=== PATIENT | female | born 1960 | race American Indian/Alaskan Native ===

== ENCOUNTER 2017-02-08 08:43 | Inpatient (IN) | payer OTHER ==
[2017-02-08] MEDS ORDERED: ZOFRAN ODT ONE (08:52)
[2017-02-08] MEDS ORDERED: ZOFRAN ODT PO ONE (08:57)
[2017-02-08 09:46] LABS: Basophils % (Auto) 0.4 % (0.0-1.8); Eosinophils % (Auto) 0.6 % (0.0-4.3); Hematocrit 39.9 % (30.3-42.9); Hemoglobin 13.3 gm/dl (10.1-14.3); Mean Corpuscular HGB Conc 33 % (30-34); Mean Corpuscular Hemoglobin 30 pg (28-32); Mean Corpuscular Volume 89 fl (79-97); Platelet Count 233 K/mm3 (140-440); Red Cell Distribution Width 13.3 % (13.2-15.2); White Blood Count 18.7 K/mm3 (4.5-11.0)
[2017-02-08 09:55] LABS: Bilirubin,Urine NEG (Negative); Blood,Urine NEG (Negative); Ketones,Urine NEG (Negative); Leukocyte Esterase,Urine NEG (Negative); Nitrite,Urine NEG (Negative); Protein,Urine <15 mg/dL mg/dL (Negative); Urobilinogen,Urine < 2.0 mg/dL (<2.0)
[2017-02-08 09:59] LABS: Alanine Aminotransferase 12 units/L (7-56); Albumin 4.1 g/dL (3.9-5); Albumin/Globulin Ratio 1.4 %; Alkaline Phosphatase 65 units/L (35-129); Anion Gap 19 mmol/L; BUN/Creatinine Ratio 23.33; Bilirubin,Total 0.2 mg/dL (0.1-1.2); Blood Urea Nitrogen 14 mg/dL (7-17); Calcium 8.9 mg/dL (8.4-10.2); Carbon Dioxide 23 mmol/L (22-30); Chloride 101.9 mmol/L (98-107); Glucose 214 mg/dL (65-100); Lipase 34 units/L (13-60); Sodium 141 mmol/L (137-145); Total Protein 7.1 g/dL (6.3-8.2)
[2017-02-08 10:07] LABS: Potassium 2.9 mmol/L (3.6-5.0)
[2017-02-08] MEDS ORDERED: K-DUR PO ONE ×2 (10:09→17:00)
--- NOTE | 2017-02-08 10:42 | Emergency Department Report ---
ED General Adult HPI - General Chief complaint: Dizziness Stated complaint: VERTIGO/EMESIS/DIZZINESS Time Seen by Provider: 02/08/17 10:40 Source: patient, family, EMS Mode of arrival: Wheelchair Limitations: No Limitations - History of Present Illness Initial comments: She states that she was at work yesterday when she began to become nauseated. She was concerned because her blood pressure was 160 systolic at work which is high for her. She had some vague dizziness. She developed a spinning sensation ("vertigo"). Today she started to experience epigastric discomfort and vomiting. She had no signs of GI bleeding. She denied any diarrhea. She denied any chest pain pressure or tightness. She also denied headache fever or chills. She had no other focal symptoms. She denied weakness paresthesias or numbness. She had no change in her tuttle, diplopia no difficulty with gait or her coordination. She states that she has not had similar such symptoms. Patient denies a history of coronary artery disease. She states her only surgery was uterine fibroid embolization. She has no known history of gallbladder disease or other GI problems. -: Gradual, hour(s) Location: abdomen Radiation: non-radiation Quality: aching Consistency: intermittent, now resolved Improves with: none Worsens with: none Associated Symptoms: denies other symptoms, nausea/vomiting Treatments Prior to Arrival: none - Related Data Home Medications Medication Instructions Recorded Confirmed Last Taken Lisinopril/Hydrochlorothiazide 1 tab PO DAILY 02/08/17 02/08/17 Unknown [Zestoretic 10-12.5 mg] Allergies Allergy/AdvReac Type Severity Reaction Status Date / Time Penicillins Allergy Hives Verified 02/08/17 08:49 ED Review of Systems ROS: Stated complaint: VERTIGO/EMESIS/DIZZINESS Other details as noted in HPI Constitutional: denies: chills, fever Eyes: denies: eye pain, eye discharge, vision change ENT: denies: ear pain, throat pain Respiratory: denies: cough, shortness of breath, wheezing Cardiovascular: denies: chest pain, palpitations Endocrine: no symptoms reported Gastrointestinal: abdominal pain, nausea, vomiting. denies: diarrhea Genitourinary: denies: urgency, dysuria, discharge Musculoskeletal: denies: back pain, joint swelling, arthralgia Skin: denies: rash, lesions Neurological: vertigo. denies: headache, weakness, paresthesias Psychiatric: denies: anxiety, depression Hematological/Lymphatic: denies: easy bleeding, easy bruising ED Past Medical Hx - Past Medical History Hx Hypertension: Yes (takes lisinopril) - Surgical History Past Surgical History?: Yes Additional Surgical History: fibroid removal - Social History Smoking Status: Never Smoker Substance Use Type: None - Medications Home Medications: Home Medications Medication Instructions Recorded Confirmed Last Taken Type Lisinopril/Hydrochlorothiazide 1 tab PO DAILY 02/08/17 02/08/17 Unknown History [Zestoretic 10-12.5 mg] ED Physical Exam - General Limitations: No Limitations General appearance: alert, in no apparent distress - Head Head exam: Present: atraumatic, normocephalic - Eye Eye exam: Present: normal appearance, nystagmus (more accentuated right horizontal) - ENT ENT exam: Present: normal exam, mucous membranes moist - Neck Neck exam: Present: normal inspection. Absent: tenderness, meningismus - Respiratory Respiratory exam: Present: normal lung sounds bilaterally. Absent: respiratory distress - Cardiovascular Cardiovascular Exam: Present: regular rate, normal rhythm. Absent: systolic murmur, diastolic murmur, rubs, gallop - GI/Abdominal GI/Abdominal exam: Present: soft, normal bowel sounds. Absent: distended, tenderness, guarding, rebound, rigid, organomegaly, mass - Extremities Exam Extremities exam: Present: normal inspection - Back Exam Back exam: Present: normal inspection. Absent: CVA tenderness (R), CVA tenderness (L) - Neurological Exam Neurological exam: Present: alert, oriented X3, CN II-XII intact, other ( cerebellar testing was normal. Visual feels equal by confrontation.). Absent: motor sensory deficit - Psychiatric Psychiatric exam: Present: normal affect, normal mood - Skin Skin exam: Present: warm, dry, intact, normal color. Absent: rash ED Course Vital Signs 02/08/17 02/08/17 02/08/17 08:49 09:41 09:45 Temperature 97.3 F L Pulse Rate 65 72 Respiratory 18 19 16 Rate Blood Pressure 134/67 Blood Pressure 163/81 [Right] O2 Sat by Pulse 100 99 Oximetry 02/08/17 02/08/17 02/08/17 10:00 11:00 11:45 Temperature Pulse Rate 64 64 77 Respiratory 12 15 16 Rate Blood Pressure 163/81 145/68 Blood Pressure 133/70 [Right] O2 Sat by Pulse 99 100 100 Oximetry 02/08/17 02/08/17 02/08/17 12:04 12:32 13:00 Temperature Pulse Rate 66 Respiratory 16 11 L Rate Blood Pressure 145/68 133/70 Blood Pressure [Right] O2 Sat by Pulse 100 100 100 Oximetry 02/08/17 14:00 Temperature Pulse Rate 76 Respiratory Rate Blood Pressure 131/70 Blood Pressure [Right] O2 Sat by Pulse 100 Oximetry - Reevaluation(s) Reevaluation #1: She is Discussed with Dr. Gonzalez; the patient was admitted to the hospitalist service. A CT of her head was negative for any obvious pathology. A CT of the abdomen with IV contrast showed no evidence of any inflammatory process. The patient does have uterine fibroid. Her 12-lead EKG showed repolarization abnormalities which might be consistent with her hypokalemia. She had that repleted in the emergency department she was given Protonix and antiemetics. She didn't have any persistent vomiting in the emergency department. As far as I know her symptoms have improved. She has been admitted for further care and evaluation. 02/08/17 15:07 ED Medical Decision Making - Lab Data Result diagrams: 02/08/17 09:22 02/08/17 09:22 Laboratory Results - last 24 hr 02/08/17 02/08/17 02/08/17 09:22 09:22 Unknown WBC 18.7 H RBC 4.50 Hgb 13.3 Hct 39.9 MCV 89 MCH 30 MCHC 33 RDW 13.3 Plt Count 233 Lymph % (Auto) 12.2 L [place] % (Auto) 3.0 Eos % (Auto) 0.6 Baso % (Auto) 0.4 Lymph # 2.3 Mora # 0.6 Eos # 0.1 Baso # 0.1 Seg Neutrophils % 83.8 H Seg Neutrophils # 15.6 H Sodium 141 Potassium 2.9 L* Chloride 101.9 Carbon Dioxide 23 Anion Gap 19 BUN 14 Creatinine 0.6 L Estimated GFR > 60 BUN/Creatinine Ratio 23.33 Glucose 214 H Calcium 8.9 Total Bilirubin 0.2 AST 18 ALT 12 Alkaline Phosphatase 65 Total Protein 7.1 Albumin 4.1 Albumin/Globulin Ratio 1.4 Lipase 34 Urine Color Straw Urine Turbidity Clear Urine pH 6.0 Ur Specific [place] 1.015 Urine Protein <15 mg/dl Urine Glucose (UA) >=500 Urine Ketones Neg Urine Blood Neg Urine Nitrite Neg Urine Bilirubin Neg Urine Urobilinogen < 2.0 Ur Leukocyte Esterase Neg Urine WBC (Auto) 1.0 Urine RBC (Auto) 1.0 Laboratory Results - last 24 hr 02/08/17 02/08/17 02/08/17 09:22 09:22 09:22 WBC 18.7 H RBC 4.50 Hgb 13.3 Hct 39.9 MCV 89 MCH 30 MCHC 33 RDW 13.3 Plt Count 233 Lymph % (Auto) 12.2 L [place] % (Auto) 3.0 Eos % (Auto) 0.6 Baso % (Auto) 0.4 Lymph # 2.3 Mora # 0.6 Eos # 0.1 Baso # 0.1 Seg Neutrophils % 83.8 H Seg Neutrophils # 15.6 H Sodium 141 Potassium 2.9 L* Chloride 101.9 Carbon Dioxide 23 Anion Gap 19 BUN 14 Creatinine 0.6 L Estimated GFR > 60 BUN/Creatinine Ratio 23.33 Glucose 214 H Calcium 8.9 Magnesium 1.7 Total Bilirubin 0.2 AST 18 ALT 12 Alkaline Phosphatase 65 Total Creatine Kinase 135 CK-MB (CK-2) 2.6 CK-MB (CK-2) Rel Index 1.9 Troponin T < 0.010 Total Protein 7.1 Albumin 4.1 Albumin/Globulin Ratio 1.4 Lipase 34 Urine Color Urine Turbidity Urine pH Ur Specific [place] Urine Protein Urine Glucose (UA) Urine Ketones Urine Blood Urine Nitrite Urine Bilirubin Urine Urobilinogen Ur Leukocyte Esterase Urine WBC (Auto) Urine RBC (Auto) 02/08/17 Unknown WBC RBC Hgb Hct MCV MCH MCHC RDW Plt Count Lymph % (Auto) [place] % (Auto) Eos % (Auto) Baso % (Auto) Lymph # Mora # Eos # Baso # Seg Neutrophils % Seg Neutrophils # Sodium Potassium Chloride Carbon Dioxide Anion Gap BUN Creatinine Estimated GFR BUN/Creatinine Ratio Glucose Calcium Magnesium Total Bilirubin AST ALT Alkaline Phosphatase Total Creatine Kinase CK-MB (CK-2) CK-MB (CK-2) Rel Index Troponin T Total Protein Albumin Albumin/Globulin Ratio Lipase Urine Color Straw Urine Turbidity Clear Urine pH 6.0 Ur Specific [place] 1.015 Urine Protein <15 mg/dl Urine Glucose (UA) >=500 Urine Ketones Neg Urine Blood Neg Urine Nitrite Neg Urine Bilirubin Neg Urine Urobilinogen < 2.0 Ur Leukocyte Esterase Neg Urine WBC (Auto) 1.0 Urine RBC (Auto) 1.0 - EKG Data -: EKG Interpreted by Me EKG shows normal: sinus rhythm Rate: normal - EKG Data Interpretation: other (there are inferolateral changes consisting of inverted T waves very slight ST depression in V5. Small U waves I think are present.) Critical care attestation.: If time is entered above; I have spent that time in minutes in the direct care of this critically ill patient, excluding procedure time. ED Disposition Clinical Impression: Hypokalemia, Abnormal EKG, Vertigo Abdominal pain Qualifiers: Abdominal location: epigastric Qualified Code(s): R10.13 - Epigastric pain Leukocytosis Qualifiers: Leukocytosis type: unspecified Qualified Code(s): D72.829 - Elevated white blood cell count, unspecified Vomiting Qualifiers: Vomiting type: unspecified Vomiting Intractability: non-intractable Nausea presence: with nausea Qualified Code(s): R11.2 - Nausea with vomiting, unspecified Hypertension Qualifiers: Hypertension type: essential hypertension Qualified Code(s): I10 - Essential ( primary) hypertension Disposition: OP ADMITTED IP TO THIS HOSP Is pt being admited?: Yes Does the pt Need Aspirin: Yes Condition: Stable Instructions: Hypertension (ED) Referrals: PRIMARY CARE, [Primary Care Provider] - 3-5 Days Time of Disposition: 15:10
[2017-02-08] MEDS ORDERED: ZOFRAN IV ONE (10:56)
[2017-02-08] MEDS ORDERED: NACL 0.9% 1000 ML 1,000 ML IV ONE (10:56)
[2017-02-08] MEDS ORDERED: PROTONIX IV ONE (10:59)
[2017-02-08] MEDS ORDERED: NACL ONE (10:59)
[2017-02-08 11:17] LABS: Creatine Kinase MB 2.6 ng/mL (0.0-4.0)
[2017-02-08 11:19] LABS: Creatine Kinase 135 units/L (30-135); Magnesium 1.7 mg/dL (1.7-2.3)
--- NOTE | 2017-02-08 12:01 | History and Physical Report ---
History of Present Illness Chief complaint: I got dizzy, and almost passed out History of present illness: 56 YO Female with HTN, presents to ED for evaluation. Pt states that while she was at work yesterday she became dizzy and nauseated and felt like the room was spinning. Pt also acknowledges nausea. Pt denies fever, chills, CP, Palpitations, syncope, loose stools, loss of bowel/bladder continence, seizure, trauma, projectile vomiting, or recent ill contacts. Past History Past Medical History: hypertension Past Surgical History: Other (fibroid excision) Social history: , lives with family. denies: smoking, alcohol abuse, prescription drug abuse Family history: hypertension Medications and Allergies Allergies Allergy/AdvReac Type Severity Reaction Status Date / Time Penicillins Allergy Hives Verified 02/08/17 08:49 Home Medications Medication Instructions Recorded Confirmed Last Taken Type Lisinopril/Hydrochlorothiazide 1 tab PO DAILY 02/08/17 02/08/17 Unknown History [Zestoretic 10-12.5 mg] Review of Systems All systems: negative Neurological: vertigo Exam - Constitutional Vitals: Temp Pulse Resp BP Pulse Ox 97.3 F L 65 18 134/67 100 02/08/17 08:49 02/08/17 08:49 02/08/17 08:49 02/08/17 08:49 02/08/17 08:49 General appearance: Present: no acute distress, well-nourished - EENT Eyes: Present: PERRL (horizontal nystagmus) ENT: hearing intact, clear oral mucosa - Neck Neck: Present: supple, normal ROM - Respiratory Respiratory effort: normal Respiratory: bilateral: CTA - Cardiovascular Heart Sounds: Present: S1 & S2. Absent: rub, click - Extremities Extremities: pulses symmetrical, No edema Peripheral Pulses: within normal limits - Abdominal General gastrointestinal: Present: soft, non-tender, non-distended, normal bowel sounds Female genitourinary: Present: normal - Integumentary Integumentary: Present: clear, warm, dry - Musculoskeletal Musculoskeletal: gait normal, strength equal bilaterally - Psychiatric Psychiatric: appropriate mood/affect, intact judgment & insight - Neurologic Neurologic: CNII-XII intact, moves all extremities Results - Labs CBC & Chem 7: 02/08/17 09:22 02/08/17 09:22 Labs: Abnormal lab results 02/08/17 02/08/17 Range/Units 09:22 09:22 WBC 18.7 H (4.5-11.0) K/mm3 Lymph % (Auto) 12.2 L (13.4-35.0) % Seg Neutrophils % 83.8 H (40.0-70.0) % Seg Neutrophils # 15.6 H (1.8-7.7) K/mm3 Potassium 2.9 L* (3.6-5.0) mmol/L Creatinine 0.6 L (0.7-1.2) mg/dL Glucose 214 H (65-100) mg/dL Assessment and Plan - Patient Problems (1) Vertigo Current Visit: Yes Status: Acute Plan to address problem: EEG, Meclizine, supportive care, CT head (2) Accelerated hypertension Current Visit: Yes Status: Acute Plan to address problem: monitor bp q shift, supportive care, resume home medication (3) Hypokalemia Current Visit: Yes Status: Acute Plan to address problem: repleted, (4) EKG abnormalities Current Visit: Yes Status: Acute Plan to address problem: secondary to hypokalemia, remote telemetry, potassium repleted (5) DVT prophylaxis Current Visit: Yes Status: Acute
--- NOTE | 2017-02-08 12:18 | XRay Report ---
AP CHEST: HISTORY: Hypertension AP view of the chest demonstrates a normal mediastinal and cardiac contour with clear lungs and normal bony and soft tissue structures. IMPRESSION: Unremarkable AP chest.
--- NOTE | 2017-02-08 12:19 | Cat Scan Report ---
CT HEAD WITHOUT CONTRAST: HISTORY: Vertigo, nystagmus. Serial contiguous axial images were obtained through the cranium. Intravenous contrast material was not administered. The ventricles are normal in size and appearance. There is no mass effect or midline shift. No areas of abnormally increased or decreased attenuation are seen. No mass lesion is seen. The mastoid air cells and visualized portions of the sinuses are normal. IMPRESSION: Cranial CT scan within normal limits.
--- NOTE | 2017-02-08 12:22 | Cat Scan Report ---
CT SCAN OF THE ABDOMEN AND PELVIS WITH CONTRAST: HISTORY: Epigastric pain, leukocytosis. TECHNIQUE: Helical CT in 1.25mm intervals following IV contrast. Sagittal and coronal reconstructions. FINDINGS: The liver is normal in size and is without focal defect. No gallstones or biliary dilatation are noted. The spleen and pancreas demonstrate a normal size and attenuation with no evidence of abnormal mass. The kidneys are normal in size and position with no evidence of hydronephrosis or mass. 2.5 cm cyst in the mid left kidney is noted. The adrenal glands are normal. There is no intestinal obstruction or ascites. Normal appendix. The abdominal aorta is normal. There are multiple partially calcified uterine fibroids. The largest fibroid measures 5 cm in the fundal region. No adnexal abnormality is detected. There is no evidence of peritoneal air or fluid. There is no evidence of any abnormal masses or fluid collections within the pelvis. No adenopathy is identified. The bladder is normal. IMPRESSION: No acute inflammatory process is appreciated. Uterine fibroids. 2.5 cm left renal cyst. No clear explanation for leukocytosis in the abdomen or pelvis.
[2017-02-08] MEDS ORDERED: TYLENOL PO PRN (13:34)
[2017-02-08] MEDS ORDERED: DULCOLAX PR PRN (13:34)
[2017-02-08] MEDS ORDERED: MILK OF MAGNESIA PO PRN (13:34)
--- NOTE | 2017-02-08 13:43 | Admit Criteria Form ---
Admission Criteria Documentation: DIZZINESS Clinical Indications for Admission to Inpatient Care (Place 'X' for any and all applicable criteria): Admission is indicated for ANY ONE of the following(1)(2)(3)(4): [ ]I. Inpatient admission required rather than observation care (Also use Dizziness: Observation Care as appropriate) because of ANY ONE of the following: [ ]a) Hemodynamic instability that is severe or persistent [ ]b) Signs or symptoms that are severe or persistent (eg, vomit, orthostasis, inability to ambulate) [ ]c) Cardiac arrhythmias of immediate concern [ ]d) Severe (new) neurologic findings requiring inpatient care as indicated by ANY ONE of the following(6)(7): [ ]1) Cerebral bleeding, ischemia, or vasospasm(8)(9) [ ]2) Increased intracranial pressure or hydrocephalus(10)(11)(12) [ ]3) Papilledema [ ]4) Cerebral edema [ ]5) Mass effect on CT scan [ ]e) Continuous IV infusion of anticoagulation, platelet inhibitor, vasoactive, or antiarrhythmic medication [ ]f) Cerebral bleeding, hydrocephalus, or vasospasm monitoring(14) [ ]g) Increased intracranial pressure or cerebral edema monitoring [ ]h) Vomiting that is severe or persistent [ ]i) Other condition, treatment or monitoring requiring inpatient admission [X ]II. A suspected etiology that requires admission for treatment [ ]III. Acute bacterial labyrinthitis [ ]IV. Cerebellar, brainstem, or cerebral ischemia or hemorrhage (5) Extended stay beyond goal length of stay may be needed for evaluating and treating a specific cause of dizziness, including(32) [ ]a) Head injury (Also use Traumatic Brain Injury, Nonsurgical Treatment guideline) [ ]b) New-onset vertebrobasilar vascular insufficiency [ ]c) Acute Meniere disease with intractable symptoms [ ]d) Cardiac arrhythmias or conduction defects [ ]e) Acute neurologic event causing dizziness [ ]f) Myocardial ischemia [ ]g) Acute bacterial labyrinthitis. [ ]h) Severe acute vestibular neuronitis The original [employer] content created by [employer] has been revised. The portions of the content which have been revised are identified through the use of italic text or in bold, and [facility] [employer] has neither reviewed nor approved the modified material. All other unmodified content is copyright [employer] [facility]. Please see references footnoted in the original [facility] edition 2016 Admission Criteria Met: Yes
[2017-02-08] MEDS ORDERED: ANTIVERT PO PRN (14:00)
[2017-02-08] MEDS: ZOFRAN IV PRN (16:35)
[2017-02-09] MEDS: ZOFRAN IV PRN ×2 (00:35→09:46)
[2017-02-09 09:49] LABS: Hematocrit 39.6 % (30.3-42.9); Hemoglobin 13.3 gm/dl (10.1-14.3); Mean Corpuscular HGB Conc 34 % (30-34); Mean Corpuscular Hemoglobin 30 pg (28-32); Mean Corpuscular Volume 88 fl (79-97); Platelet Count 198 K/mm3 (140-440); Red Cell Distribution Width 13.5 % (13.2-15.2); White Blood Count 12.5 K/mm3 (4.5-11.0)
[2017-02-09 09:50] LABS: Anion Gap 16 mmol/L; Blood Urea Nitrogen 12 mg/dL (7-17); Calcium 8.9 mg/dL (8.4-10.2); Carbon Dioxide 22 mmol/L (22-30); Chloride 103.7 mmol/L (98-107); Glucose 112 mg/dL (65-100); Sodium 138 mmol/L (137-145)
--- NOTE | 2017-02-09 12:52 | Progress Note ---
Assessment and Plan Assessment and plan: Vertigo/dizziness. Increase Meclizine History Interval history: dizziness Hospitalist Physical - Physical exam Narrative exam: Gen: Not in acute distress HEENT: Bruise, left part of forehead Neck: supple, no JVD Lungs: Clear to auscultation bilaterally, no crackles, no wheeze Heart S1-S2 regular, no murmurs rubs or gallop, Abdomen: soft, non tender,non-distended, normal bowel sounds Ext: No edema, no clubbing, no cyanosis Neuro: Awake, alert.oriented x 3, no focal neurological signs, Psych: normal mood - Constitutional Vitals: Temp Pulse Resp BP Pulse Ox 97.7 F 63 20 157/77 100 02/09/17 08:00 02/09/17 08:00 02/09/17 08:00 02/09/17 08:00 02/09/17 08:00 General appearance: Present: no acute distress, well-nourished Results - Labs CBC & Chem 7: 02/09/17 09:05 02/09/17 09:05 Labs: Laboratory Last Values WBC 12.5 K/mm3 (4.5-11.0) H 02/09/17 09:05 RBC 4.50 M/mm3 (3.65-5.03) 02/09/17 09:05 Hgb 13.3 gm/dl (10.1-14.3) 02/09/17 09:05 Hct 39.6 % (30.3-42.9) 02/09/17 09:05 MCV 88 fl (79-97) 02/09/17 09:05 MCH 30 pg (28-32) 02/09/17 09:05 MCHC 34 % (30-34) 02/09/17 09:05 RDW 13.5 % (13.2-15.2) 02/09/17 09:05 Plt Count 198 K/mm3 (140-440) 02/09/17 09:05 Lymph % (Auto) 12.2 % (13.4-35.0) L 02/08/17 09:22 [place] % (Auto) 3.0 % (0.0-7.3) 02/08/17 09:22 Eos % (Auto) 0.6 % (0.0-4.3) 02/08/17 09:22 Baso % (Auto) 0.4 % (0.0-1.8) 02/08/17 09:22 Lymph # 2.3 K/mm3 (1.2-5.4) 02/08/17 09:22 [place] # 0.6 K/mm3 (0.0-0.8) 02/08/17 09:22 Eos # 0.1 K/mm3 (0.0-0.4) 02/08/17 09:22 Baso # 0.1 K/mm3 (0.0-0.1) 02/08/17 09:22 Seg Neutrophils % 83.8 % (40.0-70.0) H 02/08/17 09:22 Seg Neutrophils # 15.6 K/mm3 (1.8-7.7) H 02/08/17 09:22 Sodium 138 mmol/L (137-145) 02/09/17 09:05 Potassium 4.0 mmol/L (3.6-5.0) D 02/09/17 09:05 Chloride 103.7 mmol/L (98-107) 02/09/17 09:05 Carbon Dioxide 22 mmol/L (22-30) 02/09/17 09:05 Anion Gap 16 mmol/L 02/09/17 09:05 BUN 12 mg/dL (7-17) 02/09/17 09:05 Creatinine 0.6 mg/dL (0.7-1.2) L 02/09/17 09:05 Estimated GFR > 60 ml/min 02/09/17 09:05 BUN/Creatinine Ratio 20.00 % 02/09/17 09:05 Glucose 112 mg/dL (65-100) H 02/09/17 09:05 Calcium 8.9 mg/dL (8.4-10.2) 02/09/17 09:05 Magnesium 1.7 mg/dL (1.7-2.3) 02/08/17 09:22 Total Bilirubin 0.2 mg/dL (0.1-1.2) 02/08/17 09:22 AST 18 units/L (5-40) 02/08/17 09:22 ALT 12 units/L (7-56) 02/08/17 09:22 Alkaline Phosphatase 65 units/L (35-129) 02/08/17 09:22 Total Creatine Kinase 135 units/L (30-135) 02/08/17 09:22 CK-MB (CK-2) 2.6 ng/mL (0.0-4.0) 02/08/17 09:22 CK-MB (CK-2) Rel Index 1.9 (0-4) 02/08/17 09:22 Troponin T < 0.010 ng/mL (0.00-0.029) 02/08/17 09:22 Total Protein 7.1 g/dL (6.3-8.2) 02/08/17 09:22 Albumin 4.1 g/dL (3.9-5) 02/08/17 09:22 Albumin/Globulin Ratio 1.4 % 02/08/17 09:22 Lipase 34 units/L (13-60) 02/08/17 09:22 Urine Color Straw (Yellow) 02/08/17 Unknown Urine Turbidity Clear (Clear) 02/08/17 Unknown Urine pH 6.0 (5.0-7.0) 02/08/17 Unknown Ur Specific [place] 1.015 (1.003-1.030) 02/08/17 Unknown Urine Protein <15 mg/dl mg/dL (Negative) 02/08/17 Unknown Urine Glucose (UA) >=500 mg/dL (Negative) 02/08/17 Unknown Urine Ketones Neg mg/dL (Negative) 02/08/17 Unknown Urine Blood Neg (Negative) 02/08/17 Unknown Urine Nitrite Neg (Negative) 02/08/17 Unknown Urine Bilirubin Neg (Negative) 02/08/17 Unknown Urine Urobilinogen < 2.0 mg/dL (<2.0) 02/08/17 Unknown Ur Leukocyte Esterase Neg (Negative) 02/08/17 Unknown Urine WBC (Auto) 1.0 /HPF (0.0-6.0) 02/08/17 Unknown Urine RBC (Auto) 1.0 /HPF (0.0-6.0) 02/08/17 Unknown
[2017-02-09] MEDS: ANTIVERT PO SCH ×2 (14:02→21:02)
[2017-02-09] MEDS ORDERED: BABY ASPIRIN PO ONE (15:13)
[2017-02-10] MEDS: ANTIVERT PO SCH ×3 (05:58→21:42)
--- NOTE | 2017-02-10 10:34 | Discharge Summary ---
Providers - Providers Date of Admission: 02/08/17 13:24 Date of discharge: 02/10/17 Attending physician: AUGUSTUS GRECO Primary care physician: HAM JC MD Hospitalization Condition: Fair Disposition: DISCHARGED TO HOME OR SELFCARE - Discharge Diagnoses (1) Vertigo Status: Acute (2) Benign paroxysmal positional vertigo Status: Acute Qualifiers: Laterality: L (3) Hypertension Status: Chronic Qualifiers: Hypertension type: essential hypertension Qualified Code(s): I10 - Essential (primary) hypertension Exam - Constitutional Vitals: Temp Pulse Resp BP Pulse Ox 97.8 F 72 16 144/68 96 02/10/17 08:30 02/10/17 08:30 02/10/17 08:30 02/10/17 08:30 02/10/17 08:30 Plan Diet: low fat, low cholesterol, low salt Additional Instructions: 1.Follow up with PCP in 3-5 days. 2.Follow up with ENT Surgeon in 3-5 days. Follow up with: PRIMARY CARE, [Primary Care Provider] - 3-5 Days Prescriptions: Lisinopril [Zestril TAB] 10 mg PO QDAY #30 tablet Meclizine [Antivert] 25 mg PO Q8H #30 tablet
[2017-02-10] MEDS: ZESTRIL PO SCH (11:23)
[2017-02-10] MEDS: HALFPRIN EC PO SCH (11:23)
[2017-02-10] MEDS ORDERED: ATIVAN IV STA (15:52)
--- NOTE | 2017-02-10 17:55 | Magnetic Resonance Report ---
FINAL REPORT PROCEDURE: MR BRAIN WO CON TECHNIQUE: Magnetic resonance imaging of the brain was performed without contrast material. HISTORY: Vertigo COMPARISON: No prior studies are available for comparison. FINDINGS: There is no restricted diffusion to suggest acute infarction. No parenchymal signal abnormalities are seen. No evidence of intracranial mass. No hydrocephalus. No abnormal extra-axial fluid collections are seen. Globes and orbits are symmetric in appearance. The paranasal sinuses and mastoids are aerated. IMPRESSION: No acute abnormality identified
--- NOTE | 2017-02-10 17:59 | Progress Note ---
Assessment and Plan - Patient Problems (1) Vertigo Current Visit: Yes Status: Acute Hospitalist Physical - Constitutional Vitals: Temp Pulse Resp BP Pulse Ox 97.8 F 72 16 144/88 96 02/10/17 08:30 02/10/17 11:23 02/10/17 08:30 02/10/17 11:23 02/10/17 08:30 General appearance: Present: no acute distress, well-nourished Results - Labs CBC & Chem 7: 02/09/17 09:05 02/09/17 09:05 Labs: Laboratory Last Values WBC 12.5 K/mm3 (4.5-11.0) H 02/09/17 09:05 RBC 4.50 M/mm3 (3.65-5.03) 02/09/17 09:05 Hgb 13.3 gm/dl (10.1-14.3) 02/09/17 09:05 Hct 39.6 % (30.3-42.9) 02/09/17 09:05 MCV 88 fl (79-97) 02/09/17 09:05 MCH 30 pg (28-32) 02/09/17 09:05 MCHC 34 % (30-34) 02/09/17 09:05 RDW 13.5 % (13.2-15.2) 02/09/17 09:05 Plt Count 198 K/mm3 (140-440) 02/09/17 09:05 Lymph % (Auto) 12.2 % (13.4-35.0) L 02/08/17 09:22 [place] % (Auto) 3.0 % (0.0-7.3) 02/08/17 09:22 Eos % (Auto) 0.6 % (0.0-4.3) 02/08/17 09:22 Baso % (Auto) 0.4 % (0.0-1.8) 02/08/17 09:22 Lymph # 2.3 K/mm3 (1.2-5.4) 02/08/17 09:22 Simpson # 0.6 K/mm3 (0.0-0.8) 02/08/17 09:22 Eos # 0.1 K/mm3 (0.0-0.4) 02/08/17 09:22 Baso # 0.1 K/mm3 (0.0-0.1) 02/08/17 09:22 Seg Neutrophils % 83.8 % (40.0-70.0) H 02/08/17 09:22 Seg Neutrophils # 15.6 K/mm3 (1.8-7.7) H 02/08/17 09:22 Sodium 138 mmol/L (137-145) 02/09/17 09:05 Potassium 4.0 mmol/L (3.6-5.0) D 02/09/17 09:05 Chloride 103.7 mmol/L (98-107) 02/09/17 09:05 Carbon Dioxide 22 mmol/L (22-30) 02/09/17 09:05 Anion Gap 16 mmol/L 02/09/17 09:05 BUN 12 mg/dL (7-17) 02/09/17 09:05 Creatinine 0.6 mg/dL (0.7-1.2) L 02/09/17 09:05 Estimated GFR > 60 ml/min 02/09/17 09:05 BUN/Creatinine Ratio 20.00 % 02/09/17 09:05 Glucose 112 mg/dL (65-100) H 02/09/17 09:05 Calcium 8.9 mg/dL (8.4-10.2) 02/09/17 09:05 Magnesium 1.7 mg/dL (1.7-2.3) 02/08/17 09:22 Total Bilirubin 0.2 mg/dL (0.1-1.2) 02/08/17 09:22 AST 18 units/L (5-40) 02/08/17 09:22 ALT 12 units/L (7-56) 02/08/17 09:22 Alkaline Phosphatase 65 units/L (35-129) 02/08/17 09:22 Total Creatine Kinase 135 units/L (30-135) 02/08/17 09:22 CK-MB (CK-2) 2.6 ng/mL (0.0-4.0) 02/08/17 09:22 CK-MB (CK-2) Rel Index 1.9 (0-4) 02/08/17 09:22 Troponin T < 0.010 ng/mL (0.00-0.029) 02/08/17 09:22 Total Protein 7.1 g/dL (6.3-8.2) 02/08/17 09:22 Albumin 4.1 g/dL (3.9-5) 02/08/17 09:22 Albumin/Globulin Ratio 1.4 % 02/08/17 09:22 Lipase 34 units/L (13-60) 02/08/17 09:22 Urine Color Straw (Yellow) 02/08/17 Unknown Urine Turbidity Clear (Clear) 02/08/17 Unknown Urine pH 6.0 (5.0-7.0) 02/08/17 Unknown Ur Specific [place] 1.015 (1.003-1.030) 02/08/17 Unknown Urine Protein <15 mg/dl mg/dL (Negative) 02/08/17 Unknown Urine Glucose (UA) >=500 mg/dL (Negative) 02/08/17 Unknown Urine Ketones Neg mg/dL (Negative) 02/08/17 Unknown Urine Blood Neg (Negative) 02/08/17 Unknown Urine Nitrite Neg (Negative) 02/08/17 Unknown Urine Bilirubin Neg (Negative) 02/08/17 Unknown Urine Urobilinogen < 2.0 mg/dL (<2.0) 02/08/17 Unknown Ur Leukocyte Esterase Neg (Negative) 02/08/17 Unknown Urine WBC (Auto) 1.0 /HPF (0.0-6.0) 02/08/17 Unknown Urine RBC (Auto) 1.0 /HPF (0.0-6.0) 02/08/17 Unknown
[2017-02-11] MEDS: ANTIVERT PO SCH ×2 (05:09→13:26)
[2017-02-11 08:23] LABS: Hematocrit 42.6 % (30.3-42.9); Hemoglobin 14.4 gm/dl (10.1-14.3); Mean Corpuscular HGB Conc 34 % (30-34); Mean Corpuscular Hemoglobin 30 pg (28-32); Mean Corpuscular Volume 87 fl (79-97); Platelet Count 196 K/mm3 (140-440); Red Blood Count 4.87 M/mm3 (3.65-5.03); Red Cell Distribution Width 13.4 % (13.2-15.2)
--- NOTE | 2017-02-11 10:07 | Event Note ---
Date: 02/11/17 MRI Brain unremarkable. Will d/c home if ok with Neurology
--- NOTE | 2017-02-11 11:09 | Consultation ---
History of Present Illness Consult date: 02/11/17 Requesting physician: AUGUSTUS GRECO Reason for Consult: vertigo Chief complaint: sense of movement History of present illness: 56 YO F Hx HTN p/w new onset sense of movement. Sx onset 02/07 @ 4:30 PM while working when she looked down at her keyboard. Sx are intermittent lasting mins. Sx recurrently triggered/aggravated by head/body position movement/change. Sx relieved by rest. There are no other temporal factors. Severity such to limit ambulation. Past History Past Medical History: hypertension Past Surgical History: Other (fibroid excision) Social history: , lives with family. denies: smoking, alcohol abuse, prescription drug abuse, IV drug use Family history: hypertension Medications and Allergies Allergies Allergy/AdvReac Type Severity Reaction Status Date / Time Penicillins Allergy Hives Verified 02/08/17 08:49 Home Medications Medication Instructions Recorded Confirmed Last Taken Type Lisinopril [Zestril TAB] 10 mg PO QDAY #30 tablet 02/10/17 Unknown Rx Meclizine [Antivert] 25 mg PO Q8H #30 tablet 02/10/17 Unknown Rx Active Meds: Active Medications Acetaminophen (Tylenol) 650 mg PO Q4H PRN PRN Reason: Pain MILD(1-3)/Fever >100.5/MARTÍNEZ Aspirin (Halfprin Ec) 81 mg PO QDAY [facility] Last Admin: 02/10/17 11:23 Dose: 81 mg Bisacodyl (Dulcolax) 10 mg IN QDAY PRN PRN Reason: Constipation unrelieved by MOM Lisinopril (Zestril) 10 mg PO QDAY [facility] Last Admin: 02/10/17 11:23 Dose: 10 mg Magnesium Hydroxide (Milk Of Magnesia) 30 ml PO Q4H PRN PRN Reason: Constipation Last Admin: 02/10/17 21:42 Dose: 30 ml Meclizine HCl (Antivert) 25 mg PO Q8H [facility] Last Admin: 02/11/17 05:09 Dose: 25 mg Ondansetron HCl (Zofran) 4 mg IV Q8H PRN PRN Reason: N/V unrelieved by Reglan Last Admin: 02/09/17 09:46 Dose: 4 mg Review of Systems Constitutional: fatigue Neurological: lack of coordination, vertigo, balance difficulties, gait dysfunction, no paralysis, no weakness, no parathesias, no numbness, no tingling , no seizures, no syncope, no tremors, no convulsions, no change in speech, no change in mentation, no changes in smell/taste, no motor disturbance, no sensory deficit, no double vision, no loss of vision Physical Examination - Vital Signs Vital Signs: Vital Signs Temp Pulse Resp BP Pulse Ox 97.3 F L 65 18 134/67 100 02/08/17 08:49 02/08/17 08:49 02/08/17 08:49 02/08/17 08:49 02/08/17 08:49 - Constitutional General appearance: comfortable - EENT EENT: Present: ATNC, PERRL, mucous membranes moist, hearing intact, vision intact - Respiratory Respiratory: Present: chest non-tender, normal breath sounds, no respiratory distress - Cardiovascular Cardiovascular: Present: regular rate Extremities: Present: no peripheral edema bilatateraly, no clubbing, cyanosis, no inflammation, no ischemia or petechiae - Gastrointestinal Gastrointestinal: Present: normoactive bowel sounds, soft, non-distended - Integumentary Integumentary: Present: normal - Neurologic Cranial nerve examination: PERRL, EOMI, VFF, V1/V2/V3 grossly intact, face symmetric, tongue midline, intact, intact shoulder shrug, intact cough reflex, Intact Vestibulo-ocular r, intact corneal reflex, normal palatal elevation Speech examination: intact Sensorimotor examination: intact Motor examination - right side: 5/5: biceps, triceps, wrist flexion, wrist extension, blind lacer, hip flexors, knee extensors, dorsiflexion, toe extension (EHL) , plantarflexion Motor examination - left side: 5/5: biceps, triceps, wrist flexion, wrist extension, blind lacer, hip flexors, knee extensors, dorsiflexion, toe extension (EHL) , plantarflexion Detailed sensory examination: intact, light touch, temperature Reflex and gait examination: intact Reflexes: 2+: ankle, bicep, knee, tricep - Musculoskeletal Musculoskeletal: Present: no fluid collection, no pain, normal range of motion - Psychiatric Psychiatric: Present: mood/affect appropriate, cooperative Results - Laboratory Findings CBC and BMP: 02/11/17 07:48 02/09/17 09:05 Abnormal Lab Findings: Abnormal Labs 02/09/17 02/09/17 02/11/17 09:05 09:05 07:48 WBC 12.5 H Hgb 14.4 H Creatinine 0.6 L Glucose 112 H Assessment and Plan 56 YO F Hx HTN p/w acute onset 4 days of intermittent dizziness assoc w/ sense of movement and recurrently triggered by head/body position change causing gait unsteadiness and relieved by resting still. Neuro exam normal intact without focal deficits. MRI Brain negative. Clinical syn consistent with BPPV unclear laterality. Recs: 1. Neuro checks 2. Meclizine 12.5-25mg TID prn AND/OR Valium 2mg TID prn or Ativan 0.5-1mg TID prn 3. PT/OT 4. No neurologic contraindication for discharge once cleared by other services involved in patient's care. 5. We can revisit as needed.
[2017-02-11] MEDS: HALFPRIN EC PO SCH (11:41)
[2017-02-11] MEDS: ZESTRIL PO SCH (11:41)
[2017-02-11 16:59] VITALS: BP 155/64
== END 2017-02-11 19:20 | disposition home or self-care (01) | DRG 149 ==
LOC: ED 08:43 → 3A 13:24
PROVIDERS: ADMIT Internal Medicine; ATTEND Internal Medicine
DX: H81.12 Benign paroxysmal vertigo, left ear (principal); E87.6 Hypokalemia; R26.81 Unsteadiness on feet; I10 Essential (primary) hypertension; Z82.49 Family history of ischemic heart disease and other diseases of the circulatory system; Z88.0 Allergy status to penicillin
CPT/HCPCS: 36415; 70450; 70551; 71010; 74177; 80048; 80053; 81001; 82550; 82553; 83690; 83735; 84484; 85025; 85027; 93005; 93010; 96361; 96374; C9113; J2060; J2405; J7030; Q0162; Q9967

== ENCOUNTER 2018-11-11 11:32 | Outpatient (CLI) | payer OTHER ==
--- NOTE | 2018-11-11 14:05 | Mammography Report ---
RIGHT DIGITAL DIAGNOSTIC MAMMOGRAM : 11/11/18 11:32:00 CLINICAL: Recalled for asymmetry. COMPARISON:10/14/18 screening FINDINGS: Additional mammographic views were performed and are negative. IMPRESSION: Negative Mammogram. BI-RADS CATEGORY: 1 -- Negative RECOMMENDATION: Routine mammographic screening in one year. ACR BI-RADS MAMMOGRAPHIC CODES: 0 = Needs additional imaging evaluation; 1 = Negative; 2 = Benign; 3 = Probably benign; 4 = Suspicious; 5 = Malignant; 6 = Known biopsy-proven malignancy COMMENT: 1. Dense breast tissue, i.e., adenosis, fibrocystic changes, etc., may obscure an underlying neoplasm. 2. Approximately 10% of cancers are not detected with mammography. 3. A negative mammography report should not delay biopsy if a clinically suspicious mass is present. COMMENT: Patient follow-up letters are generated via our [employer] application.
== END 2018-11-11 11:33 | disposition home or self-care (01) ==
LOC: SPVWC 11:32
PROVIDERS: ATTEND Internal Medicine
DX: N64.59 Other signs and symptoms in breast (principal); I10 Essential (primary) hypertension

== ENCOUNTER 2020-08-03 11:17 | Outpatient (CLI) | payer OTHER ==
--- NOTE | 2020-08-04 08:00 | Mammography Report ---
DIGITAL SCREENING MAMMOGRAM WITH CAD, 08/03/2020 INDICATION: Routine screening mammography. SCREENING MAMMOGRAM TECHNIQUE: Digital bilateral 2D mammography was obtained in the craniocaudal and mediolateral obliq ue projections. This examination was interpreted with the benefit of Computer-Aided Detection analysi s. COMPARISON: 10/14/2018 and prior FINDINGS: Breast Density: The breasts are heterogeneously dense, which may obscure small masses. There is no evidence of dominant mass, suspicious calcifications or architectural distortion in the l eft breast. On the cc view of the right breast centrally just lateral to the midline plain, mid to po sterior depth, an asymmetric density is seen with possible distortion. IMPRESSION: Possible density with distortion on the right Follow up recommendation: Right spot compression views and ultrasound if needed Category 0: Incomplete. Needs additional imaging evaluation and/or prior mammograms for comparison. A "normal" or negative report should not discourage follow up or biopsy of a clinically significant f inding. A written summary of these findings will be mailed to the patient. The patient will be entered into a mammography reporting system which will generate a reminder letter for the patient's next appointmen t at the appropriate interval. The [employer] recommends yearly mammograms starting at age 40 and continuing as l brittney as a woman is in good health. Breast MRI is recommended for women with an approximate 20-25% or greater lifetime risk of breast cancer, including women with a strong family history of breast or ova abigail cancer or who have been treated for Hodgkin's disease. Signer Name: Aryan Roman MD Signed: 08/04/2020 7:55 AM Workstation Name: [id number]
== END 2020-08-03 11:18 | disposition home or self-care (01) ==
LOC: SPVWC 11:17
PROVIDERS: ATTEND Family Medicine
DX: Z12.31 Encounter for screening mammogram for malignant neoplasm of breast (principal)
CPT/HCPCS: 77067

== ENCOUNTER 2020-08-30 13:24 | Outpatient (CLI) | payer OTHER ==
--- NOTE | 2020-08-30 14:11 | Mammography Report ---
DIGITAL DIAGNOSTIC MAMMOGRAM WITH CAD , 08/30/2020 CLINICAL INFORMATION / INDICATION: Asymmetry with possible distortion in the right breast on screenin g mammography. TECHNIQUE: Digital right mammographic imaging was performed. Spot compression views were obtained. This examination was interpreted with the benefit of Computer-aided Detection analysis. COMPARISON: 08/03/20. FINDINGS: Breast Density: The breasts are heterogeneously dense, which may obscure small masses. No dominant mass, suspicious calcifications or architectural distortion in the right breast. The asym metry and possible distortion are no longer present on additional imaging. IMPRESSION: No mammographic evidence of malignancy. Follow up recommendation: Routine yearly BI-RADS Category 1: Negative. A "normal" or negative report should not discourage follow up or biopsy of a clinically significant f inding. A written summary of these findings will be mailed to the patient. The patient will be entered into a mammography reporting system which will generate a reminder letter for the patient's next appointmen t at the appropriate interval. According to the [employer], yearly mammograms are recommended starting at age 40 and continuing as long as a woman is in good health. Breast MRI is recommended for women with an anibal roximately 20-25% or greater lifetime risk of breast cancer, including women with a strong family his tory of breast or ovarian cancer and women who have been treated for Hodgkin's disease. Signer Name: Matthias Farias MD Signed: 08/30/2020 2:07 PM Workstation Name: [id number]
== END 2020-08-30 13:25 | disposition home or self-care (01) ==
LOC: SPVWC 13:24
PROVIDERS: ATTEND Family Medicine
DX: R92.8 Other abnormal and inconclusive findings on diagnostic imaging of breast (principal)

== ENCOUNTER 2021-08-28 11:33 | Outpatient (CLI) | payer OTHER ==
--- NOTE | 2021-08-29 17:03 | Mammography Report ---
DIGITAL SCREENING MAMMOGRAM WITH CAD, 08/28/2021 CLINICAL INFORMATION / INDICATION: Routine screening mammography. TECHNIQUE: Digital bilateral 2D mammography was obtained in the craniocaudal and mediolateral obliqu e projections. This examination was interpreted with the benefit of Computer-Aided Detection analysis . COMPARISON: 08/30/2020 10/14/2018 FINDINGS: Breast Density: The breasts are heterogeneously dense, which may obscure small masses. No dominant mass, suspicious calcifications, or architectural distortion in either breast. IMPRESSION: No mammographic evidence of malignancy. Follow up recommendation: Routine yearly BI-RADS Category 1: Negative. A "normal" or negative report should not discourage follow up or biopsy of a clinically significant f inding. A written summary of these findings will be mailed to the patient. The patient will be entered into a mammography reporting system which will generate a reminder letter for the patient's next appointmen t at the appropriate interval. The [employer] recommends yearly mammograms starting at age 40 and continuing as l brittney as a woman is in good health. Breast MRI is recommended for women with an approximate 20-25% or greater lifetime risk of breast cancer, including women with a strong family history of breast or ova abigail cancer or who have been treated for Hodgkin's disease. Signer Name: Stephani Fairchild MD Signed: 08/29/2021 4:58 PM Workstation Name: [id number]
== END 2021-08-28 11:34 | disposition home or self-care (01) ==
LOC: SPVWC 11:33
PROVIDERS: ATTEND Family Medicine
DX: Z12.31 Encounter for screening mammogram for malignant neoplasm of breast (principal)
CPT/HCPCS: 77067